=== PATIENT | male | born 1990 | race Two or more races ===

== ENCOUNTER 2022-01-15 07:32 | Inpatient (IN) | payer OTHER ==
[~2022-01-15] VITALS: Ht 177.8 cm; Wt 102.1 kg
--- NOTE | 2022-01-15 08:10 | NUR ---
BIBS W/ C/O INABILITY TO SLEEP X4 DAYS, HEADACHE X2 DAYS. PT STATES HE LAST DRANK 3 DAYS AGO AND IS STRESSED OUT. TO ER BED 3.
--- NOTE | 2022-01-15 08:52 | NUR ---
PHLEB AT BEDSIDE FOR BLOOD DRAW
[2022-01-15 09:10] LABS: BASOPHILS % (AUTO) 0.5 % (0.0-2.0); EOSINOPHILS % (AUTO) 0.4 % (0.0-6.0); HEMATOCRIT 44 % (39-51); HEMOGLOBIN 14.9 g/dL (13.5-17.5); LYMPHOCYTES % (AUTO) 16.2 % (20.0-44.0); MEAN CORPUSCULAR HGB CONC 34 g/dl (31.0-36.0); MEAN CORPUSCULAR VOLUME 90 fL (80-96); MONOCYTES # (AUTO) 0.4 K/uL (0.1-1.30); MONOCYTES % (AUTO) 6.5 % (2.0-12.0); NEUTROPHILS # (AUTO) 4.6 K/uL (1.8-8.9); NEUTROPHILS % (AUTO) 76.4 % (43.0-81.0); RED BLOOD CELL COUNT(AUTO) 4.88 MIL/uL (4.5-6.0)
[2022-01-15 09:18] LABS: CALCIUM, SERUM 8.8 mg/dL (8.5-10.1); CREATININE 0.8 mg/dL (0.6-1.3); POTASSIUM 3.2 mmol/L (3.5-5.1)
[2022-01-15 09:23] LABS: ALBUMIN 3.2 g/dL (3.4-5.0); BILIRUBIN,DIRECT 7.3 mg/dL (0.0-0.2); BILIRUBIN,TOTAL 9.3 mg/dL (0.2-1.0); TOTAL PROTEIN, SERUM 6.7 g/dL (6.4-8.2)
[2022-01-15 09:49] LABS: PLATELET COUNT (AUTO) 49 K/uL (150-450)
--- NOTE | 2022-01-15 11:19 | NUR ---
COVID SWAB COLLECTED AND SENT TO LAB
--- NOTE | 2022-01-15 12:10 | NUR ---
DR PRATT PRESENTING CASE TO PERCY NAJERA ARCHITECTURAL RENDERER
[2022-01-15 14:14] LABS: LYMPHOCYTES % (MANUAL) 13 % (16-48); MONOCYTES % (MANUAL) 9 % (0-11.0); NEUTROPHILS % (MANUAL) 78 (42-76)
[2022-01-15] MEDS ORDERED: LORAZEPAM INJ 2 MG/ML VIAL IV PRN (14:30)
[2022-01-15] MEDS ORDERED: Thiamine 100 MG in IV D5W 50 ML IV SCH (14:30)
[2022-01-15] MEDS ORDERED: Z GUARD REMEDY 4 OZ OINT TP PRN (14:30)
[2022-01-15] MEDS ORDERED: MAGNESIUM HYDROXIDE 30 ML UDC PO PRN (14:30)
[2022-01-15] MEDS ORDERED: ONDANSETRON HCL/PF 4 MG/2 ML VIAL IVP PRN (14:30)
[2022-01-15] MEDS ORDERED: IV NS 0.9% 1,000 ML IV PRN (14:30)
[2022-01-15] MEDS ORDERED: MAG HYDROX/AL HYDROX/SIMETH 30 ML UDC PO PRN (14:30)
[2022-01-15] MEDS ORDERED: ACETAMINOPHEN 325 MG TABLET PO PRN (14:30)
--- NOTE | 2022-01-15 14:47 | NUR ---
IV LINE ESTABLISHED ON LAC #20. PT PROVIDED W/ LATE LUNCH AT BEDSIDE, VIN WELL
--- NOTE | 2022-01-15 19:28 | NUR ---
PATIENT IS AAOX4. ABLE TO MAKE NEEDS KNOWN. PATIENT WILL BE ADMITTED D/T ETOH WITHDRAWAL. WAITING FOR ROOM. ATTACHED TO MONITOR. VITALS CHECKED.
--- NOTE | 2022-01-15 21:43 | NUR ---
REPORT GIVEN TO ZOHAR KAM. PATIENT WILL BE MOVING TO ROOM
[2022-01-15 21:45] VITALS: BP 124/75
--- NOTE | 2022-01-15 22:30 | NUR ---
RN NOTE RECEIVED PT FROM ER VIA [facility] WITH THE DIAGNOSIS OF ACUTE ETOH WITHDRAWAL. PT IS AMBULATORY AND ABLE TO GO INSIDE THE ROOM ON HIS OWN. A/O X 4, ABLE TO MAKE NEEDS KNOWN. CURRENTLY ON RA WITH NO S/SX OF ACUTE RESPIRATORY DISTRESS NOTED AT THIS TIME. NO SOB, NO PAIN PER PATIENT. VS STABLE. IV ACCESS IS NOTED ON LAC #20g, SL. SKIN IS INTACT UPON ASSESSMENT. PT SAID HE WANTED TO BE ADMITTED TO GET FURTHER TESTS DONE JUST TO MAKE SURE HE IS OKAY. ALL SAFETY MEASURES IN PLACE: BED LOCKED IN LOW POSITION. CALL LIGHT WITHIN REACH. WILL CONTINUE TO MONITOR. INITIAL VS FOLLOW: TEMP 98.5 HR 87 RR 18 O2 98% BP 124/75
[2022-01-16 05:47] LABS: BASOPHILS % (AUTO) 0.6 % (0.0-2.0); EOSINOPHILS % (AUTO) 1.7 % (0.0-6.0); HEMATOCRIT 42 % (39-51); HEMOGLOBIN 14.4 g/dL (13.5-17.5); LYMPHOCYTES # (AUTO) 1.4 K/uL (0.8-4.8); LYMPHOCYTES % (AUTO) 24.8 % (20.0-44.0); MEAN CORPUSCULAR HGB CONC 35 g/dl (31.0-36.0); MEAN CORPUSCULAR VOLUME 90 fL (80-96); MONOCYTES # (AUTO) 0.5 K/uL (0.1-1.30); MONOCYTES % (AUTO) 9.1 % (2.0-12.0); NEUTROPHILS # (AUTO) 3.5 K/uL (1.8-8.9); NEUTROPHILS % (AUTO) 63.8 % (43.0-81.0); RED BLOOD CELL COUNT(AUTO) 4.66 MIL/uL (4.5-6.0); WHITE BLOOD COUNT (AUTO) 5.5 K/uL (4.3-11.0)
--- NOTE | 2022-01-16 05:50 | NUR ---
RN NOTE RECEIVED RECENT LAB RESULT FOR PT'S PLATELET COUNT: 47
--- NOTE | 2022-01-16 05:55 | NUR ---
RN NOTE PT REMAINED STABLE T/O THE NIGHT. PT SAID HE WAS ABLE TO SLEEP WELL. WILL ENDORSE TO AM SHIFT NURSE FOR JOSE DANIEL.
[2022-01-16 05:56] LABS: PLATELET COUNT (AUTO) 47 K/uL (150-450)
[2022-01-16 05:58] LABS: CALCIUM, SERUM 8.6 mg/dL (8.5-10.1); CREATININE 0.7 mg/dL (0.6-1.3)
[2022-01-16 06:03] LABS: ALBUMIN 2.8 g/dL (3.4-5.0); BILIRUBIN,DIRECT 7.6 mg/dL (0.0-0.2); BILIRUBIN,TOTAL 9.2 mg/dL (0.2-1.0); MAGNESIUM 2.3 mg/dL (1.8-2.4); PHOSPHORUS 3.1 mg/dL (2.5-4.9); TOTAL PROTEIN, SERUM 6.3 g/dL (6.4-8.2)
[2022-01-16 06:10] LABS: THYROID STIMULATING HORMONE 4.446 uIU/mL (0.358-3.74)
--- NOTE | 2022-01-16 07:45 | NUR ---
RN OPENING NOTES RECEIVED PATIENT IN BED, CALM AOX4, PATIENT MENTIONED HE WAS ABLE TO SLEEP FOR THE FIRST TIME IN 3 DAYS, VERBAL, AMBULATORY, PATIENT IS ON ROOM AIR TOLERATING WELL WITH NO SIGNS AND SYMPTOMS OF RESPIRATORY DISTRESS, PATIENT HAS RIGHT HAND G#22 IV LINE WITH NS RUNNING AT 50 ML/HR, PATIENT, INFUSING WELL. NO COMPLAINTS OF NAUSEA/VOMITTING. PATIENT DENIES PAIN AT THIS TIME. SAFETY MEASURES IN PLACE: BED AT LOWEST POSITION, SIDE RAILS UP, TRAY TABLE AND CALL LIGHT WITHIN REACH. WILL CONTINUE TO MONITOR DURING MY SHIFT.
[2022-01-16 08:35] VITALS: BP 123/81
[2022-01-16] MEDS ORDERED: THIAMINE HCL 100 MG TABLET PO SCH (09:00)
[2022-01-16] MEDS ORDERED: FOLIC ACID 1 MG TABLET PO SCH (09:00)
--- NOTE | 2022-01-16 09:20 | NUR ---
RN NOTES PATIENT REQUESTED TO WALK AROUND THE FLOOR. DETACHED FROM THE IV AND OBSERVED HIS GAIT, STEADY. PATIENT GOT BACK TO THE ROOM AND RESUMED IV.
[2022-01-16] MEDS ORDERED: POTASSIUM CHLORIDE 20 MEQ TAB.PRT.SR PO SCH (10:00)
--- NOTE | 2022-01-16 10:35 | NUR ---
RN NOTES HOLLIE NAJERA IS AT BEDSIDE WITH PATIENT.
[2022-01-16] MEDS ORDERED: Thiamine HCL PO (13:08)
[2022-01-16] MEDS ORDERED: Folic Acid PO (13:08)
--- NOTE | 2022-01-16 14:25 | NUR ---
MS PERSHING MISSILE CREWMEMBER NOTE PT DISCHARGED TO HOME IN STABLE CONDITION. PT A/O X4, ABLE TO MAKE NEEDS KNOWN. ON RA, TOLERATING WELL WITH SPO2 98%. NO SOB NOTED. NOT IN ANY SIGN OF RESPIRATORY DISTRESS. VITAL SIGNS TAKEN, STABLE, AND RECORDED. PT'S SKIN INTACT. DENIES PAIN OR DISCOMFORT AT THIS TIME. ALL BELONGINGS ACCOUNTED FOR. DISCHARGED INSTRUCTIONS AND HEALTH TEACHINGS GIVEN TO PATIENT HIMSELF. VERBALIZED UNDERSTANDING. IV ACCESS IN RH G #22 REMOVED WITH NO ACTIVE BLEEDING NOTED. DRY PRESSURE DRESSING APPLIED AT SITE. PT LEFT THE UNIT AT 1420 ON FOOT. ACCOMPANIED BY ME TO CRISTIAN. AND CHARGE NURSE AWARE OF THE DISCHARGE.
[2022-01-16 21:44] LABS: EOSINOPHILS % (MANUAL) 1 % (0-4); LYMPHOCYTES % (MANUAL) 31 % (16-48); MONOCYTES % (MANUAL) 5 % (0-11.0); NEUTROPHILS % (MANUAL) 63 (42-76)
== END 2022-01-16 14:20 | disposition home or self-care (01) | DRG 897 ==
LOC: ER 07:41 → MED 21:11
PROVIDERS: ADMIT Registered Nurse; ATTEND Registered Nurse
DX: F10.239 Alcohol dependence with withdrawal, unspecified (principal); D69.59 Other secondary thrombocytopenia; K70.30 Alcoholic cirrhosis of liver without ascites; Z20.822 Contact with and (suspected) exposure to COVID-19; Y90.0 Blood alcohol level of less than 20 mg/100 ml; G47.00 Insomnia, unspecified; E66.9 Obesity, unspecified; Z68.32 Body mass index [BMI] 32.0-32.9, adult; K70.40 Alcoholic hepatic failure without coma; K76.0 Fatty (change of) liver, not elsewhere classified
CPT/HCPCS: 36415; 76700-TC; 80048-TC; 80076-TC; 82140-TC; 82247-TC; 82248-TC; 83690-TC; 83735-TC; 84100-TC; 84443-TC; 85025-TC; 85610-TC; 87081-TC; C9803; G0378; G0480; J3411; J7030; J7060